=== PATIENT | female | born 1990 | race Caucasian/White ===

== ENCOUNTER 2018-03-28 16:03 | Emergency (ER) | payer MEDICAID | END 2018-03-28 19:30 | disposition left against medical advice (07) | LOC: ED 16:03 ==

== ENCOUNTER 2018-10-28 12:26 | Emergency (ER) | payer MEDICAID ==
[2018-10-28] MEDS ORDERED: NACL 0.9% 1000 ML IV ONE ×2 (12:34→13:15)
--- NOTE | 2018-10-28 12:37 | Event Note ---
ED Screening Note ED Screening Note: recently seen in ER and a breathing mask (per pt) was used has asthma can not tell me the ER was sent home on antibiotics comes in today with chills diaphoretic on assessment in triage ro CAP This initial assessment/diagnostic orders/clinical plan/treatment(s) is/are subject to change based on patients health status, clinical progression and re- assessment by fellow clinical providers in the ED. Further treatment and workup at subsequent clinical providers discretion. Patient/guardian urged not to elope from the ED as their condition may be serious if not clinically assessed and managed. Initial orders include: sepsis work up
[2018-10-28] MEDS ORDERED: ZITHROMAX 500 MG in NACL 0.9% 250ML 250 ML IV ONE (13:38)
[2018-10-28 14:08] LABS: Basophils % (Auto) 0.1 % (0.0-1.8); Hematocrit 46.1 % (30.3-42.9); Hemoglobin 15.3 gm/dl (10.1-14.3); Lymphocytes # (Auto) 1.5 K/mm3 (1.2-5.4); Mean Corpuscular HGB Conc 33 % (30-34); Mean Corpuscular Volume 91 fl (79-97); Monocytes # (Auto) 0.7 K/mm3 (0.0-0.8); Monocytes % (Auto) 5.2 % (0.0-7.3); Platelet Count 317 K/mm3 (140-440); Red Blood Count 5.09 M/mm3 (3.65-5.03); Red Cell Distribution Width 14.4 % (13.2-15.2)
--- NOTE | 2018-10-28 14:26 | XRay Report ---
CHEST 1 VIEW 2:05 PM INDICATION / CLINICAL INFORMATION: Chills and body aches for 2 weeks. COMPARISON: 02/03/2018. FINDINGS: SUPPORT DEVICES: None. HEART / MEDIASTINUM: The heart size and pulmonary vasculature are normal. LUNGS / PLEURA: No significant pulmonary or pleural abnormality. No pneumothorax. ADDITIONAL FINDINGS: No significant additional findings. IMPRESSION: No acute abnormality or significant change since 02/03/2018. Signer Name: Adriel Swartz MD Signed: 10/28/2018 2:21 PM Workstation Name: [id number]
[2018-10-28 14:31] LABS: Alanine Aminotransferase 11 units/L (7-56); Albumin 4.6 g/dL (3.9-5); BUN/Creatinine Ratio 15; Blood Urea Nitrogen 9 mg/dL (7-17); Calcium 9.8 mg/dL (8.4-10.2); Hemolysis Index 3
[2018-10-28 14:49] LABS: Bilirubin,Urine NEG (Negative); Blood,Urine NEG (Negative); Color,Urine Yellow (Yellow); Mucus,Urine 3+ /HPF; Urobilinogen,Urine < 2.0 mg/dL (<2.0)
[2018-10-28 14:53] LABS: HCG Qualitative,Urine Negative (Negative)
[2018-10-28] MEDS ORDERED: IBUPROFEN PO ONE (14:57)
[2018-10-28] MEDS ORDERED: NORCO 5/325 PO ONE (14:57)
[2018-10-28] MEDS ORDERED: LEVAQUIN PO ONE (14:58)
--- NOTE | 2018-10-28 15:03 | Emergency Department Report ---
ED Fever HPI - General Chief Complaint: Fever Stated Complaint: FEVER 2WKS/ASTHMA ATTACK Time Seen by Provider: 10/28/18 12:34 - History of Present Illness Initial Comments: Christine is a 28-year-old female with history of severe asthma who presents with chills and subjective fever. She's had history of pneumonia on 3 previous occasions. Pressure tobacco abuse. Denies abdominal pain. Denies dysuria. Has dry cough. Gradual onset of symptoms. Was seen at another hospital provided antibiotics. Symptoms are worse at night. She has diffuse body aches. Timing/Duration: week Fever Severity/Quality: subjective Associated Symptoms: cough, muscle aches ED Review of Systems ROS: Stated complaint: FEVER 2WKS/ASTHMA ATTACK Other details as noted in HPI Comment: All other systems reviewed and negative Constitutional: chills, fever, malaise Respiratory: cough. denies: wheezing Gastrointestinal: denies: abdominal pain, nausea, vomiting Genitourinary: denies: dysuria Musculoskeletal: denies: back pain ED Past Medical Hx - Past Medical History Previous Medical History?: Yes Hx Psychiatric Treatment: Yes (Bipolar) Hx Asthma: Yes - Surgical History Past Surgical History?: No - Social History Smoking Status: Current Every Day Smoker Substance Use Type: None - Medications Home Medications: Home Medications Medication Instructions Recorded Confirmed Last Taken Type Ibuprofen [Motrin 800 MG tab] 800 mg PO Q8HR PRN #20 tablet 10/28/18 Unknown Rx levoFLOXacin [Levaquin TAB] 500 mg PO QDAY 6 Days #6 tablet 10/28/18 Unknown Rx ED Physical Exam - General Limitations: No Limitations General appearance: alert, in no apparent distress - Head Head exam: Present: atraumatic, normocephalic - Eye Eye exam: Present: normal appearance - ENT ENT exam: Present: mucous membranes moist - Neck Neck exam: Present: normal inspection - Respiratory Respiratory exam: Present: normal lung sounds bilaterally. Absent: respiratory distress, wheezes, rales, rhonchi - Cardiovascular Cardiovascular Exam: Present: regular rate, normal rhythm, normal heart sounds. Absent: systolic murmur, diastolic murmur, rubs, gallop - GI/Abdominal GI/Abdominal exam: Present: soft, normal bowel sounds. Absent: distended, tenderness, guarding, rebound - Extremities Exam Extremities exam: Present: normal inspection - Back Exam Back exam: Present: normal inspection - Neurological Exam Neurological exam: Present: alert, oriented X3 - Psychiatric Psychiatric exam: Present: normal affect, normal mood - Skin Skin exam: Present: warm, dry, intact, normal color. Absent: rash ED Course Vital Signs 10/28/18 10/28/18 12:34 15:13 Temperature 98.3 F 98.9 F Pulse Rate 105 H 95 H Respiratory 20 20 Rate Blood Pressure 121/63 Blood Pressure 114/76 [Right] O2 Sat by Pulse 100 98 Oximetry ED Medical Decision Making - Lab Data Result diagrams: 10/28/18 13:46 10/28/18 13:46 Laboratory Results - last 24 hr 10/28/18 10/28/18 10/28/18 13:46 13:46 13:46 WBC 13.5 H RBC 5.09 H Hgb 15.3 H Hct 46.1 H MCV 91 MCH 30 MCHC 33 RDW 14.4 Plt Count 317 Lymph % (Auto) 11.0 L [place] % (Auto) 5.2 Eos % (Auto) 0.0 Baso % (Auto) 0.1 Lymph # 1.5 [place] # 0.7 Eos # 0.0 Baso # 0.0 Seg Neutrophils % 83.7 H Seg Neutrophils # 11.3 H Sodium 141 Potassium 3.4 L Chloride 104.0 Carbon Dioxide 23 Anion Gap 17 BUN 9 Creatinine 0.6 L Estimated GFR > 60 BUN/Creatinine Ratio 15 Glucose 120 H Lactic Acid 3.20 H* Calcium 9.8 Total Bilirubin 0.70 AST 17 ALT 11 Alkaline Phosphatase 69 Total Protein 8.4 H Albumin 4.6 Albumin/Globulin Ratio 1.2 Urine Color Urine Turbidity Urine pH Ur Specific [place] Urine Protein Urine Glucose (UA) Urine Ketones Urine Blood Urine Nitrite Urine Bilirubin Urine Urobilinogen Ur Leukocyte Esterase Urine WBC (Auto) Urine RBC (Auto) U Epithel Cells (Auto) Urine Mucus Urine HCG, Qual Blood Type Antibody Screen 10/28/18 10/28/18 10/28/18 13:46 14:00 14:41 WBC RBC Hgb Hct MCV MCH MCHC RDW Plt Count Lymph % (Auto) [place] % (Auto) Eos % (Auto) Baso % (Auto) Lymph # [place] # Eos # Baso # Seg Neutrophils % Seg Neutrophils # Sodium Potassium Chloride Carbon Dioxide Anion Gap BUN Creatinine Estimated GFR BUN/Creatinine Ratio Glucose Lactic Acid 2.70 H* Calcium Total Bilirubin AST ALT Alkaline Phosphatase Total Protein Albumin Albumin/Globulin Ratio Urine Color Yellow Urine Turbidity Hazy Urine pH 5.0 Ur Specific [place] 1.038 H Urine Protein 30 mg/dl Urine Glucose (UA) Neg Urine Ketones Tr Urine Blood Neg Urine Nitrite Neg Urine Bilirubin Neg Urine Urobilinogen < 2.0 Ur Leukocyte Esterase Neg Urine WBC (Auto) 3.0 Urine RBC (Auto) 5.0 U Epithel Cells (Auto) 5.0 Urine Mucus 3+ Urine HCG, Qual Negative Blood Type O POSITIVE Antibody Screen Negative - Radiology Data Radiology results: report reviewed cxr: no acute process - Medical Decision Making Christine presents with subjective fever and chills. NO evidence of PNA on today exam. She denies urinary symptoms. She received Levaquin and azithromycin here in the ED. I do not suspect bacteremia. Discharge home with PRESCRIPTION for Levaquin and ibuprofen. I reviewed labs, mild leukocytosis noted. Down trending lactate also noted. Critical care attestation.: If time is entered above; I have spent that time in minutes in the direct care of this critically ill patient, excluding procedure time. ED Disposition Clinical Impression: Fever Disposition: [id number] TO HOME OR SELFCARE Is pt being admited?: No Does the pt Need Aspirin: No Condition: Stable Instructions: Fever in Adults (ED) Prescriptions: levoFLOXacin [Levaquin TAB] 500 mg PO QDAY 6 Days #6 tablet Ibuprofen [Motrin 800 MG tab] 800 mg PO Q8HR PRN #20 tablet PRN Reason: Pain , Severe (7-10) Referrals: SHANEKA SHUKLA MD [Primary Care Provider] - 3-5 Days
[2018-10-28 16:34] VITALS: BP 120/70
== END 2018-10-28 16:33 | disposition home or self-care (01) ==
LOC: ED 12:26
DX: R50.9 Fever, unspecified (principal); R05 Cough; M79.10 Myalgia, unspecified site; F31.9 Bipolar disorder, unspecified; F17.200 Nicotine dependence, unspecified, uncomplicated; J45.909 Unspecified asthma, uncomplicated
CPT/HCPCS: 36415; 71045; 80053; 81001; 81025; 82140; 85025; 86850; 86900; 86901; 87040; 87086; 96365; 99284; J0456; J7030; J7050

== ENCOUNTER 2019-02-11 15:29 | Emergency (ER) | payer MEDICAID ==
[2019-02-11 15:53] VITALS: BP 99/73
== END 2019-02-11 18:27 | disposition left against medical advice (07) ==
LOC: ED 15:29
DX: R42 Dizziness and giddiness (principal); Z53.21 Procedure and treatment not carried out due to patient leaving prior to being seen by health care provider